=== PATIENT | female | born 1970 | race Two or more races ===

== ENCOUNTER 2023-05-05 13:20 | Inpatient (IN) | payer MEDICAID ==
[~2023-05-05] VITALS: Ht 167.6 cm; Wt 112.7 kg
[~2023-05-05 13:20] MED LIST: ATOR10TA52 PO; FURO1TAB31 PO; GABA-1250 PO; HYDR25TA87 PO; MET25T PO; NIFE1TAB31 PO
[2023-05-05 14:00] VITALS: PULSE 65; RESP 14; O2SAT 94
[2023-05-05 14:08] LABS: Basophils # (auto) 0.1 10 ^3/uL (0-0.2); Basophils % (auto) 1.1 % (0.0-2.0); Eosinophils # (auto) 0.2 10 ^3/uL (0-0.8); Eosinophils % (auto) 1.7 % (0.0-7.0); Hematocrit 32.5 % (36.0-46.0); Hemoglobin 10.6 g/dL (12.2-16.2); Lymphocytes # (auto) 1.8 10 ^3/uL (0.4-5.4); Lymphocytes % (auto) 13.5 % (10.0-50.0); Mean Corpuscular Hemoglobin 27.6 pg (28.0-32.0); Mean Corpuscular Hgb Conc. 32.7 g/dL (32.0-36.0); Mean Corpuscular Volume 84.5 fL (80.0-100.0); Monocytes # (auto) 0.7 10 ^3/uL (0-1.3); Monocytes % (auto) 5.6 % (0.0-12.0); Neutrophils # (auto) 10.4 10 ^3/uL (1.6-8.6); Neutrophils % (auto) 78.1 % (37.0-80.0); Red Blood Cells 3.84 10^6/uL (4.0-5.20); Red Cell Distribution Width 13.3 % (11.8-14.3); White Blood Cell 13.3 10^3/uL (4.4-10.8)
[2023-05-05 14:24] LABS: Alanine Aminotransferase 22 U/L (7-40); Albumin 3.8 g/dL (3.2-4.8); Alkaline Phosphatase 140 U/L (46-116); Anion Gap 10 (5-15); Aspartate Aminotransferase 14 U/L (13-40); BUN/Creatinine Ratio 13.3 (10.0-20.0); Blood Urea Nitrogen 73 mg/dL (9-23); Calcium 8.5 mg/dL (8.7-10.4); Carbon Dioxide 19 mmol/L (20-30); Chloride 105 mmol/L (98-107); Glucose 250 mg/dL (74-106); Magnesium 2.3 mg/dL (1.6-2.6); Sodium 134 mmol/L (136-145)
[2023-05-05 14:25] LABS: Bilirubin, Total 0.8 mg/dL (0.2-1.0); Total Protein 6.5 g/dL (5.7-8.2)
[2023-05-05 14:29] LABS: Potassium 6.1 mmol/L (3.5-5.1)
[2023-05-05] MEDS ORDERED: SODIUM ZIRCONIUM CYCL 10 GM PAK PO ONE ×2 (14:30→16:45)
[2023-05-05] MEDS ORDERED: InsuLIN REG 1unit/0.01ml Soln (100units/ml) IV ONE ×2 (14:30→16:45)
[2023-05-05] MEDS ORDERED: FUROSEMIDE 40 MG/4 ML VIAL IV ONE (14:30)
[2023-05-05] MEDS ORDERED: ALBUTEROL SULF 2.5 MG/0.5ML(0.5%) NEB SOLN NEB ONE ×2 (14:30→16:45)
[2023-05-05] MEDS ORDERED: SODIUM BICARBONATE 8.4% INJ 50ML SYRINGE IV ONE (14:30)
[2023-05-05] MEDS ORDERED: CALCIUM GLUC 1,000mg/50ml-NS 50 ML IV ONE (14:30)
[2023-05-05] MEDS ORDERED: DEXTROSE (50%) 50ML SYRG IV ONE ×2 (14:30→16:45)
[2023-05-05] MEDS ORDERED: SODIUM CHLORIDE 0.9% 1,000 ML IV ONE (14:30)
[2023-05-05 15:45] LABS: Urine Bacteria FEW /hpf (None Seen); Urine Blood Negative /uL (Negative); Urine Clarity Clear (Clear); Urine Protein, UAD 2+ (Negative); Urine Specific Gravity 1.009 (1.001-1.035); Urine Urobilinogen Normal (Negative); Urine WBC 2 /hpf (0 - 5); Urine pH 5.5 (5.0-8.0)
[2023-05-05 15:46] LABS: Urine Color STRAW (Yellow)
[2023-05-05] MEDS ORDERED: MORPHINE SULFATE INJ 2 MG/ml SYRG IV PRN ×2 (16:45)
[2023-05-05] MEDS ORDERED: SODIUM CHLORIDE 0.9% 1,000 ML IV SCH (16:45)
[2023-05-05] MEDS ORDERED: DEXTROSE (50%) 50ML SYRG IV PRN (16:45)
[2023-05-05] MEDS ORDERED: NITROGLYCERIN 0.4 MG SL TAB SL PRN (16:45)
[2023-05-05] MEDS: InsuLIN REG 1unit/0.01ml Soln (100units/ml) SC SCH ×2 (17:00→23:25)
[2023-05-05] MEDS: ACCU-CHEK COMFORT CURVE STRIP VI SCH ×2 (17:00→22:00)
[2023-05-05 19:44] VITALS: PULSE 85; RESP 18; O2SAT 97
[2023-05-06] MEDS ORDERED: hydrALAZINE HCL 20 MG/ML VL ONE (06:41)
[2023-05-06] MEDS: InsuLIN REG 1unit/0.01ml Soln (100units/ml) SC SCH ×3 (07:00→17:12)
[2023-05-06 11:20] LABS: Alanine Aminotransferase 19 U/L (7-40); Albumin 3.8 g/dL (3.2-4.8); Alkaline Phosphatase 114 U/L (46-116); Anion Gap 11 (5-15); Aspartate Aminotransferase < 8 U/L (13-40); Bilirubin, Total 0.6 mg/dL (0.2-1.0); Calcium 8.7 mg/dL (8.5-10.1); Carbon Dioxide 18 mmol/L (20-30); Chloride 106 mmol/L (98-107); Glucose 149 mg/dL (74-106); Potassium 5.3 mmol/L (3.5-5.1); Sodium 135 mmol/L (136-145); Total Protein 6.8 g/dL (5.7-8.2)
[2023-05-06] MEDS: ACCU-CHEK COMFORT CURVE STRIP VI SCH ×3 (11:30→22:00)
[2023-05-06 11:40] LABS: Blood Urea Nitrogen 51 mg/dL (9-23)
[2023-05-06 14:11] LABS: Basophils # (auto) 0.1 10 ^3/uL (0-0.2); Basophils % (auto) 0.4 % (0.0-2.0); Eosinophils # (auto) 0.2 10 ^3/uL (0-0.8); Eosinophils % (auto) 1.4 % (0.0-7.0); Hematocrit 29.3 % (36.0-46.0); Hemoglobin 9.4 g/dL (12.2-16.2); Lymphocytes # (auto) 1.5 10 ^3/uL (0.4-5.4); Mean Corpuscular Hemoglobin 27.6 pg (28.0-32.0); Mean Corpuscular Volume 86.3 fL (80.0-100.0); Monocytes # (auto) 1.1 10 ^3/uL (0-1.3); Monocytes % (auto) 8.5 % (0.0-12.0); Neutrophils # (auto) 9.7 10 ^3/uL (1.6-8.6); Neutrophils % (auto) 77.7 % (37.0-80.0); Nucleated Red Blood Cells % 0.1 %; Red Cell Distribution Width 13.2 % (11.8-14.3); White Blood Cell 12.4 10^3/uL (4.4-10.8)
[2023-05-06 14:37] VITALS: PULSE 75; RESP 18; O2SAT 96
[2023-05-06] MEDS: hydrALAZINE HCL 20 MG/ML VL IV PRN ×2 (15:23→21:03)
[2023-05-06] MEDS ORDERED: GABAPENTIN 300 MG CAP PO PRN (16:30)
[2023-05-06] MEDS ORDERED: MET25T PO (17:38)
[2023-05-06] MEDS ORDERED: SEMA2INJ3 SC (17:38)
[2023-05-06] MEDS ORDERED: GABA-1250 PO (17:38)
[2023-05-06] MEDS: SODIUM BICARBONATE 50ML VIAL 50 ML in SOD CHL 0.45% 1,000 ML IV SCH ×2 (17:58→23:00)
[2023-05-06 18:07] LABS: Magnesium 2.2 mg/dL (1.6-2.6)
[2023-05-06 18:08] LABS: Phosphorus 6.7 mg/dL (2.4-5.1)
[2023-05-06 18:13] VITALS: BP 142/64; RESP 22; TEMP 97.8; O2SAT 99
[2023-05-06 20:00] VITALS: BP 146/77; PULSE 100; PULSE 101; RESP 18; TEMP 98; O2SAT 95
[2023-05-06] MEDS: ATORVASTATIN 20 MG TAB PO SCH (21:08)
[2023-05-06] MEDS: HEPARIN SODIUM (PORCINE) 5000 UNITS/ML 1ML VIAL SC SCH (21:13)
[2023-05-06] MEDS: METOPROLOL TARTRATE 25 MG TAB PO SCH (21:30)
[2023-05-06 22:00] VITALS: BP 140/68; PULSE 102; RESP 20; TEMP 98.4; O2SAT 95
[2023-05-06] MEDS ORDERED: HEPARIN SODIUM (PORCINE) 5000 UNITS/ML 1ML VIAL SC SCH (22:00)
[2023-05-07] VITALS (15 sets, daily range): BP systolic 132–176; BP diastolic 61–92; PULSE 80–112; RESP 14–24; TEMP 97.3–98.3; O2SAT 90–100
[2023-05-07] MEDS: InsuLIN REG 1unit/0.01ml Soln (100units/ml) SC SCH ×5 (00:09→22:05)
[2023-05-07] MEDS: ACCU-CHEK COMFORT CURVE STRIP VI SCH ×4 (06:21→22:05)
[2023-05-07 06:27] LABS: Anion Gap 10 (5-15); Carbon Dioxide 19 mmol/L (20-30); Chloride 109 mmol/L (98-107); Sodium 138 mmol/L (136-145)
[2023-05-07 06:28] LABS: Calcium 8.9 mg/dL (8.5-10.1)
[2023-05-07 06:29] LABS: Basophils # (auto) 0 10 ^3/uL (0-0.2); Basophils % (auto) 0.2 % (0.0-2.0); Eosinophils # (auto) 0.2 10 ^3/uL (0-0.8); Eosinophils % (auto) 1.6 % (0.0-7.0); Hematocrit 28.5 % (36.0-46.0); Hemoglobin 9.3 g/dL (12.2-16.2); Lymphocytes # (auto) 1.3 10 ^3/uL (0.4-5.4); Lymphocytes % (auto) 12.2 % (10.0-50.0); Mean Corpuscular Hemoglobin 27.9 pg (28.0-32.0); Mean Corpuscular Hgb Conc. 32.7 g/dL (32.0-36.0); Mean Corpuscular Volume 85.2 fL (80.0-100.0); Monocytes # (auto) 0.9 10 ^3/uL (0-1.3); Monocytes % (auto) 8.3 % (0.0-12.0); Neutrophils # (auto) 8.5 10 ^3/uL (1.6-8.6); Neutrophils % (auto) 77.7 % (37.0-80.0); Red Blood Cells 3.35 10^6/uL (4.0-5.20); Red Cell Distribution Width 13.2 % (11.8-14.3)
[2023-05-07 06:33] LABS: BUN/Creatinine Ratio 13.2 (10.0-20.0); Glucose 119 mg/dL (74-106)
[2023-05-07 06:40] LABS: Blood Urea Nitrogen 61 mg/dL (9-23)
[2023-05-07] MEDS ORDERED: SODIUM CHL 0.9% 1000 ML BAG XX ONE ×2 (07:00→14:00)
[2023-05-07] MEDS: SODIUM BICARBONATE 50ML VIAL 50 ML in SOD CHL 0.45% 1,000 ML IV SCH ×3 (08:21→16:30)
[2023-05-07] MEDS ORDERED: DEXTROSE (50%) 50ML SYRG IV ONE (08:30)
[2023-05-07] MEDS ORDERED: SODIUM ZIRCONIUM CYCL 10 GM PAK PO ONE ×2 (08:30→12:00)
[2023-05-07] MEDS ORDERED: ALBUTEROL SULF 2.5 MG/0.5ML(0.5%) NEB SOLN NEB ONE (08:30)
[2023-05-07] MEDS ORDERED: InsuLIN REG 1unit/0.01ml Soln (100units/ml) IV ONE (08:30)
[2023-05-07] MEDS ORDERED: LIDOCAINE 2%HCL (LOCAL ANESTH.) INJ 20ML MDV ONE (09:27)
[2023-05-07] MEDS ORDERED: fentaNYL CITRATE 100 MCG/2 ML VL ONE (09:40)
[2023-05-07] MEDS ORDERED: MIDAZOLAM HCL 2MG/2ML 2ml VIAL (1mg/ml) ONE (09:40)
[2023-05-07] MEDS ORDERED: ceFAZolin 1GM/50ML 50 ML IV ONE (09:56)
[2023-05-07] MEDS: HEPARIN SODIUM (PORCINE) 5000 UNITS/ML 1ML VIAL SC SCH ×2 (10:00→21:21)
[2023-05-07] MEDS ORDERED: amLODIPine BESYLATE 5 MG TAB PO SCH (10:00)
[2023-05-07] MEDS ORDERED: NIFEdipine ER 30 MG TAB PO SCH (10:00)
[2023-05-07] MEDS ORDERED: HEPARIN SODIUM (PORCINE) 5000 UNITS/ML 1ML VIAL ONE (10:23)
[2023-05-07] MEDS: ONDANSETRON HCL 4 MG/2 ML VIAL IV PRN ×2 (12:02→19:54)
[2023-05-07] MEDS: METOPROLOL TARTRATE 25 MG TAB PO SCH ×2 (12:06→21:10)
[2023-05-07] MEDS: HYDROcodone-ACET 5/325MG TAB PO PRN ×2 (12:09→18:42)
[2023-05-07] MEDS: hydrALAZINE HCL 20 MG/ML VL IV PRN (19:57)
[2023-05-07] MEDS ORDERED: EPOETIN ALFA-EPBX 10,000 UNIT/1ML VIAL SC ONE ×2 (21:00)
[2023-05-07] MEDS: ATORVASTATIN 20 MG TAB PO SCH (21:11)
[2023-05-07] MEDS ORDERED: METOPROLOL TARTRATE 25 MG TAB PO SCH (22:00)
[2023-05-08] VITALS (10 sets, daily range): BP systolic 147–186; BP diastolic 62–93; PULSE 77–88; RESP 16–21; TEMP 97.4–98.2; O2SAT 92–97
[2023-05-08] MEDS: SODIUM BICARBONATE 50ML VIAL 50 ML in SOD CHL 0.45% 1,000 ML IV SCH ×2 (01:15→08:26)
[2023-05-08] MEDS: ACETAMINOPHEN 325 MG TAB PO PRN ×2 (02:56→20:49)
[2023-05-08] MEDS: ONDANSETRON HCL 4 MG/2 ML VIAL IV PRN ×2 (04:19→21:59)
[2023-05-08] MEDS: hydrALAZINE HCL 20 MG/ML VL IV PRN ×2 (05:06→21:59)
[2023-05-08] MEDS: ACCU-CHEK COMFORT CURVE STRIP VI SCH ×4 (05:46→21:49)
[2023-05-08] MEDS: InsuLIN REG 1unit/0.01ml Soln (100units/ml) SC SCH ×4 (07:00→21:52)
[2023-05-08] MEDS ORDERED: NIFEdipine ER 30 MG TAB PO SCH ×2 (10:00)
[2023-05-08] MEDS: METOPROLOL TARTRATE 25 MG TAB PO SCH ×2 (11:37→20:50)
[2023-05-08] MEDS: HEPARIN SODIUM (PORCINE) 5000 UNITS/ML 1ML VIAL SC SCH ×2 (11:38→21:01)
[2023-05-08] MEDS: ATORVASTATIN 20 MG TAB PO SCH (20:51)
[2023-05-09] VITALS (9 sets, daily range): BP systolic 158–180; BP diastolic 47–81; PULSE 78–97; RESP 14–16; TEMP 97.5–99.1; O2SAT 92–99
[2023-05-09] MEDS: SODIUM BICARBONATE 50ML VIAL 50 ML in SOD CHL 0.45% 1,000 ML IV SCH ×3 (03:23→21:00)
[2023-05-09 06:24] LABS: Anion Gap 7 (5-15); Carbon Dioxide 26 mmol/L (20-30); Chloride 99 mmol/L (98-107)
[2023-05-09 06:25] LABS: Calcium 9.2 mg/dL (8.7-10.4)
[2023-05-09 06:30] LABS: BUN/Creatinine Ratio 10.6 (10.0-20.0); Blood Urea Nitrogen 34 mg/dL (9-23); Glucose 120 mg/dL (74-106)
[2023-05-09 06:32] LABS: Sodium 132 mmol/L (136-145)
[2023-05-09] MEDS: ACCU-CHEK COMFORT CURVE STRIP VI SCH ×4 (06:37→22:36)
[2023-05-09] MEDS: InsuLIN REG 1unit/0.01ml Soln (100units/ml) SC SCH ×4 (06:37→22:38)
[2023-05-09 09:32] LABS: % Iron Saturation 25.6 % (15-50)
[2023-05-09] MEDS: METOPROLOL TARTRATE 25 MG TAB PO SCH ×2 (09:49→22:40)
[2023-05-09] MEDS: HEPARIN SODIUM (PORCINE) 5000 UNITS/ML 1ML VIAL SC SCH ×2 (09:52→22:50)
[2023-05-09] MEDS: hydrALAZINE HCL 25 MG TAB PO SCH ×2 (15:39→22:41)
[2023-05-09] MEDS: B-COMPLEX W/ C & FOLIC ACID(NEPHROVITE TAB) PO SCH (15:39)
[2023-05-09] MEDS: ATORVASTATIN 20 MG TAB PO SCH (22:39)
[2023-05-09] MEDS: DOCUSATE SOD 100 MG CAP PO SCH (22:39)
[2023-05-10] VITALS (8 sets, daily range): BP systolic 149–175; BP diastolic 72–77; PULSE 74–89; RESP 15–23; TEMP 97.8–98.9; O2SAT 91–98
[2023-05-10] MEDS: hydrALAZINE HCL 25 MG TAB PO SCH ×3 (06:00→22:49)
[2023-05-10] MEDS: ACCU-CHEK COMFORT CURVE STRIP VI SCH ×4 (06:12→22:56)
[2023-05-10] MEDS: InsuLIN REG 1unit/0.01ml Soln (100units/ml) SC SCH ×4 (06:12→22:56)
[2023-05-10] MEDS: SODIUM BICARBONATE 50ML VIAL 50 ML in SOD CHL 0.45% 1,000 ML IV SCH ×3 (06:13→23:16)
[2023-05-10] MEDS: ACETAMINOPHEN 325 MG TAB PO PRN ×2 (06:36→18:37)
[2023-05-10] MEDS ORDERED: SODIUM CHL 0.9% 1000 ML BAG XX ONE (07:00)
[2023-05-10] MEDS ORDERED: HEPARIN SODIUM (PORCINE) 5000 UNITS/ML 1ML VIAL ONE (11:18)
[2023-05-10] MEDS: B-COMPLEX W/ C & FOLIC ACID(NEPHROVITE TAB) PO SCH (11:20)
[2023-05-10] MEDS: METOPROLOL TARTRATE 25 MG TAB PO SCH ×2 (11:21→22:49)
[2023-05-10] MEDS: DOCUSATE SOD 100 MG CAP PO SCH ×2 (11:21→22:49)
[2023-05-10] MEDS ORDERED: GABA-1250 PO (11:26)
[2023-05-10] MEDS ORDERED: HYDR-5052 PO (11:26)
[2023-05-10] MEDS ORDERED: MET50T PO (11:26)
[2023-05-10] MEDS: HEPARIN SODIUM (PORCINE) 5000 UNITS/ML 1ML VIAL SC SCH ×2 (11:30→22:55)
[2023-05-10] MEDS ORDERED: EPOETIN ALFA-EPBX 10,000 UNIT/1ML VIAL SC ONE (21:00)
[2023-05-10] MEDS: ATORVASTATIN 20 MG TAB PO SCH (22:49)
[2023-05-11] VITALS (7 sets, daily range): BP systolic 121–168; BP diastolic 65–75; PULSE 71–79; RESP 17–21; TEMP 36.7; O2SAT 93–98
[2023-05-11] MEDS: ACCU-CHEK COMFORT CURVE STRIP VI SCH ×3 (06:37→17:00)
[2023-05-11] MEDS: InsuLIN REG 1unit/0.01ml Soln (100units/ml) SC SCH ×3 (06:37→17:00)
[2023-05-11] MEDS: hydrALAZINE HCL 25 MG TAB PO SCH ×2 (06:37→15:19)
[2023-05-11] MEDS: SODIUM BICARBONATE 50ML VIAL 50 ML in SOD CHL 0.45% 1,000 ML IV SCH ×2 (08:00→16:45)
[2023-05-11] MEDS: DOCUSATE SOD 100 MG CAP PO SCH (10:45)
[2023-05-11] MEDS: B-COMPLEX W/ C & FOLIC ACID(NEPHROVITE TAB) PO SCH (10:45)
[2023-05-11] MEDS: METOPROLOL TARTRATE 25 MG TAB PO SCH (10:49)
[2023-05-11] MEDS: HEPARIN SODIUM (PORCINE) 5000 UNITS/ML 1ML VIAL SC SCH (10:54)
[2023-05-11 10:59] LABS: Chloride 100 mmol/L (98-107); Sodium 131 mmol/L (136-145)
[2023-05-11 11:00] LABS: Anion Gap 4 (5-15); Calcium 8.5 mg/dL (8.7-10.4); Carbon Dioxide 27 mmol/L (20-30)
[2023-05-11 11:05] LABS: BUN/Creatinine Ratio 8.1 (10.0-20.0); Blood Urea Nitrogen 25 mg/dL (9-23); Glucose 231 mg/dL (74-106)
== END 2023-05-11 19:57 | disposition home or self-care (01) | DRG 469 ==
LOC: ER 13:20 → EDUNIT# 13:20 → EDBD 13:20 → TELE 16:34 → TELE-WESTW 05-06 17:05
PROVIDERS: ADMIT Nurse Practitioner; ATTEND Nurse Practitioner
PROC: 5A1D70Z Performance of Urinary Filtration, Intermittent, Less than 6 Hours Per Day (ICD-10-PCS; principal; 2023-05-07)
PROC: 0JH63XZ Insertion of Tunneled Vascular Access Device into Chest Subcutaneous Tissue and Fascia, Percutaneous Approach (ICD-10-PCS; 2023-05-07)
PROC: 02H633Z Insertion of Infusion Device into Right Atrium, Percutaneous Approach (ICD-10-PCS; 2023-05-07)
PROC: B548ZZA Ultrasonography of Superior Vena Cava, Guidance (ICD-10-PCS; 2023-05-07)
PROC: B5191ZA Fluoroscopy of Inferior Vena Cava using Low Osmolar Contrast, Guidance (ICD-10-PCS; 2023-05-07)
PROC: 5A1D70Z Performance of Urinary Filtration, Intermittent, Less than 6 Hours Per Day (ICD-10-PCS; 2023-05-10)
DX: N17.9 Acute kidney failure, unspecified (principal); E87.20 Acidosis, unspecified; I12.0 Hypertensive chronic kidney disease with stage 5 chronic kidney disease or end stage renal disease; D63.1 Anemia in chronic kidney disease; E11.319 Type 2 diabetes mellitus with unspecified diabetic retinopathy without macular edema; N18.5 Chronic kidney disease, stage 5; E11.22 Type 2 diabetes mellitus with diabetic chronic kidney disease; E87.5 Hyperkalemia; E66.01 Morbid (severe) obesity due to excess calories; F41.9 Anxiety disorder, unspecified; E11.65 Type 2 diabetes mellitus with hyperglycemia; E11.51 Type 2 diabetes mellitus with diabetic peripheral angiopathy without gangrene; E78.5 Hyperlipidemia, unspecified; I95.1 Orthostatic hypotension; Z99.2 Dependence on renal dialysis; Z80.0 Family history of malignant neoplasm of digestive organs; Z82.49 Family history of ischemic heart disease and other diseases of the circulatory system; Z91.041 Radiographic dye allergy status; Z68.41 Body mass index [BMI] 40.0-44.9, adult
CPT/HCPCS: 36415; 36558; 71045; 76775; 76937; 77001; 80048; 80053; 81001; 82306; 82962; 83540; 83550; 83605; 83735; 83880; 83970; 84100; 84132; 84484; 85018; 85025; 85379; 87340; 90935; 93005; 94640; 99152; C1894; G0378; J0690; J1642; J1815; J2250; J2405

== ENCOUNTER 2023-06-09 15:08 | Inpatient (IN) | payer MEDICAID ==
[~2023-06-09] VITALS: Ht 160 cm; Wt 104.0 kg
[~2023-06-09 15:08] MED LIST changes: -FURO1TAB31 PO; +HYDR-5052 PO; -HYDR25TA87 PO; -MET25T PO; +MET50T PO; -NIFE1TAB31 PO
[2023-06-09 16:39] LABS: Basophils # (auto) 0.1 10 ^3/uL (0-0.2); Basophils % (auto) 0.5 % (0.0-2.0); Eosinophils # (auto) 0.3 10 ^3/uL (0-0.8); Eosinophils % (auto) 1.9 % (0.0-7.0); Hematocrit 32.7 % (36.0-46.0); Hemoglobin 10.6 g/dL (12.2-16.2); Lymphocytes # (auto) 1.6 10 ^3/uL (0.4-5.4); Lymphocytes % (auto) 11.3 % (10.0-50.0); Mean Corpuscular Hemoglobin 27.4 pg (28.0-32.0); Mean Corpuscular Hgb Conc. 32.5 g/dL (32.0-36.0); Mean Corpuscular Volume 84.4 fL (80.0-100.0); Monocytes # (auto) 0.6 10 ^3/uL (0-1.3); Monocytes % (auto) 4.6 % (0.0-12.0); Neutrophils # (auto) 11.3 10 ^3/uL (1.6-8.6); Neutrophils % (auto) 81.7 % (37.0-80.0); Red Blood Cells 3.88 10^6/uL (4.0-5.20); Red Cell Distribution Width 13.8 % (11.8-14.3); White Blood Cell 13.8 10^3/uL (4.4-10.8)
[2023-06-09 16:50] LABS: INR 0.93 (0.9-1.15); Prothrombin Time 9.8 sec (9.3-11.8)
[2023-06-09 16:54] LABS: Alanine Aminotransferase 20 U/L (7-40); Alkaline Phosphatase 147 U/L (46-116); Aspartate Aminotransferase 12 U/L (13-40); Calcium 8.8 mg/dL (8.5-10.1); Carbon Dioxide 18 mmol/L (20-30); Chloride 108 mmol/L (98-107)
[2023-06-09 16:55] LABS: Albumin 3.9 g/dL (3.2-4.8); Anion Gap 9 (5-15); Bilirubin, Total 0.7 mg/dL (0.2-1.0); Blood Urea Nitrogen 44 mg/dL (9-23); Glucose 355 mg/dL (74-106); Potassium 4.6 mmol/L (3.5-5.1); Sodium 135 mmol/L (136-145)
[2023-06-09] MEDS ORDERED: MORPHINE SULFATE INJ 2 MG/ml SYRG IV PRN (20:15)
[2023-06-09] MEDS ORDERED: DOCUSATE SOD 100 MG CAP PO PRN (20:15)
[2023-06-09] MEDS ORDERED: ONDANSETRON HCL 4 MG/2 ML VIAL IV PRN (20:15)
[2023-06-09] MEDS ORDERED: DEXTROSE (50%) 50ML SYRG IV PRN (20:15)
[2023-06-09] MEDS ORDERED: ACETAMINOPHEN 325 MG TAB PO PRN (20:15)
[2023-06-09] MEDS ORDERED: NITROGLYCERIN 0.4 MG SL TAB SL PRN (20:15)
[2023-06-09] MEDS ORDERED: ALPRAZolam 0.5 MG TAB PO PRN (20:15)
[2023-06-09 22:30] VITALS: PULSE 89; RESP 18; O2SAT 95
[2023-06-10] VITALS (11 sets, daily range): BP systolic 126–183; BP diastolic 68–102; PULSE 65–80; RESP 12–18; TEMP 97.3–98.2; O2SAT 96–100
[2023-06-10] MEDS: HYDROcodone-ACET 5/325MG TAB PO PRN ×2 (00:56→09:36)
[2023-06-10] MEDS: ATORVASTATIN 20 MG TAB PO SCH ×2 (00:57→21:59)
[2023-06-10] MEDS: hydrALAZINE HCL 25 MG TAB PO SCH ×5 (00:57→21:59)
[2023-06-10] MEDS: METOPROLOL TARTRATE 50 MG TAB PO SCH ×3 (00:58→21:59)
[2023-06-10] MEDS: ACCU-CHEK COMFORT CURVE STRIP VI SCH ×5 (01:07→23:04)
[2023-06-10] MEDS: InsuLIN REG 1unit/0.01ml Soln (100units/ml) SC SCH ×5 (01:08→23:05)
[2023-06-10 05:51] LABS: Basophils # (auto) 0 10 ^3/uL (0-0.2); Basophils % (auto) 0.2 % (0.0-2.0); Eosinophils # (auto) 0.5 10 ^3/uL (0-0.8); Eosinophils % (auto) 3.5 % (0.0-7.0); Hematocrit 34.4 % (36.0-46.0); Hemoglobin 10.8 g/dL (12.2-16.2); Lymphocytes # (auto) 3.3 10 ^3/uL (0.4-5.4); Lymphocytes % (auto) 22.6 % (10.0-50.0); Mean Corpuscular Hemoglobin 26.9 pg (28.0-32.0); Mean Corpuscular Hgb Conc. 31.4 g/dL (32.0-36.0); Mean Corpuscular Volume 85.7 fL (80.0-100.0); Monocytes # (auto) 1.1 10 ^3/uL (0-1.3); Monocytes % (auto) 7.6 % (0.0-12.0); Neutrophils # (auto) 9.5 10 ^3/uL (1.6-8.6); Neutrophils % (auto) 66.1 % (37.0-80.0); Red Blood Cells 4.02 10^6/uL (4.0-5.20); Red Cell Distribution Width 13.9 % (11.8-14.3); White Blood Cell 14.4 10^3/uL (4.4-10.8)
[2023-06-10 06:07] LABS: Alanine Aminotransferase 20 U/L (7-40); Albumin 4.2 g/dL (3.2-4.8); Alkaline Phosphatase 143 U/L (46-116); Anion Gap 10 (5-15); Aspartate Aminotransferase 12 U/L (13-40); BUN/Creatinine Ratio 11.6 (10.0-20.0); Blood Urea Nitrogen 42 mg/dL (9-23); Carbon Dioxide 16 mmol/L (20-30); Chloride 110 mmol/L (98-107); Glucose 170 mg/dL (74-106); Potassium 4.5 mmol/L (3.5-5.1); Sodium 136 mmol/L (136-145); Total Protein 7.6 g/dL (5.7-8.2)
[2023-06-10] MEDS: PANTOPRAZOLE 40 MG TAB PO SCH (09:26)
[2023-06-10] MEDS: GABAPENTIN 300 MG CAP PO SCH (09:26)
[2023-06-10] MEDS ORDERED: LIDOCAINE 2%HCL (LOCAL ANESTH.) INJ 20ML MDV ONE (12:50)
[2023-06-10] MEDS ORDERED: MIDAZOLAM HCL 2MG/2ML 2ml VIAL (1mg/ml) ONE (13:01)
[2023-06-10] MEDS ORDERED: fentaNYL CITRATE 100 MCG/2 ML VL ONE (13:01)
[2023-06-10] MEDS ORDERED: ceFAZolin 1GM/50ML 50 ML IV ONE (13:17)
[2023-06-10] MEDS ORDERED: HEPARIN SODIUM (PORCINE) 5000 UNITS/ML 1ML VIAL ONE (13:29)
[2023-06-10] MEDS ORDERED: hydrALAZINE HCL 20 MG/ML VL IV PRN (16:00)
[2023-06-10] MEDS: VANCOMYCIN 750mg/250ml 250 ML IV SCH ×2 (17:48→20:43)
[2023-06-11 05:00] VITALS: BP 112/87; PULSE 72; RESP 18; TEMP 97.8; O2SAT 99
[2023-06-11] MEDS: hydrALAZINE HCL 25 MG TAB PO SCH ×2 (05:39→14:00)
[2023-06-11] MEDS: ACCU-CHEK COMFORT CURVE STRIP VI SCH ×3 (05:40→17:00)
[2023-06-11] MEDS: InsuLIN REG 1unit/0.01ml Soln (100units/ml) SC SCH ×3 (05:43→17:00)
[2023-06-11] MEDS ORDERED: SODIUM CHL 0.9% 1000 ML BAG XX ONE (07:00)
[2023-06-11 07:28] LABS: Basophils # (auto) 0 10 ^3/uL (0-0.2); Basophils % (auto) 0.3 % (0.0-2.0); Eosinophils # (auto) 0.5 10 ^3/uL (0-0.8); Eosinophils % (auto) 4.2 % (0.0-7.0); Hematocrit 34.4 % (36.0-46.0); Hemoglobin 10.4 g/dL (12.2-16.2); Lymphocytes # (auto) 2.1 10 ^3/uL (0.4-5.4); Lymphocytes % (auto) 19.4 % (10.0-50.0); Mean Corpuscular Hemoglobin 27.3 pg (28.0-32.0); Mean Corpuscular Hgb Conc. 30.1 g/dL (32.0-36.0); Mean Corpuscular Volume 90.7 fL (80.0-100.0); Monocytes # (auto) 0.9 10 ^3/uL (0-1.3); Monocytes % (auto) 8.1 % (0.0-12.0); Neutrophils # (auto) 7.4 10 ^3/uL (1.6-8.6); Red Blood Cells 3.79 10^6/uL (4.0-5.20); Red Cell Distribution Width 14.1 % (11.8-14.3); White Blood Cell 10.8 10^3/uL (4.4-10.8)
[2023-06-11 08:00] VITALS: BP_SYST 128; BP_SYST 139; BP_DIAS 72; BP_DIAS 77; PULSE 76; PULSE 77; RESP 18; TEMP 97.7; TEMP 98; O2SAT 100; O2SAT 97
[2023-06-11] MEDS: PANTOPRAZOLE 40 MG TAB PO SCH (09:23)
[2023-06-11] MEDS: GABAPENTIN 300 MG CAP PO SCH (09:23)
[2023-06-11 09:33] LABS: Platelet Estimate Adequate
[2023-06-11] MEDS: METOPROLOL TARTRATE 50 MG TAB PO SCH (10:00)
[2023-06-11 10:51] LABS: Alanine Aminotransferase 18 U/L (7-40); Albumin 3.6 g/dL (3.2-4.8); Alkaline Phosphatase 121 U/L (46-116); Anion Gap 10 (5-15); Aspartate Aminotransferase 12 U/L (13-40); BUN/Creatinine Ratio 13.3 (10.0-20.0); Bilirubin, Total 0.6 mg/dL (0.2-1.0); Calcium 8.5 mg/dL (8.5-10.1); Carbon Dioxide 16 mmol/L (20-30); Chloride 106 mmol/L (98-107); Glucose 306 mg/dL (74-106); Sodium 132 mmol/L (136-145); Total Protein 6.7 g/dL (5.7-8.2)
[2023-06-11 10:52] LABS: Blood Urea Nitrogen 52 mg/dL (9-23)
[2023-06-11 12:00] VITALS: BP 155/73; PULSE 75; RESP 16; TEMP 98.4; O2SAT 99
[2023-06-11 15:20] VITALS: BP 134/72; PULSE 76; TEMP 36.9
[2023-06-11 16:00] VITALS: BP 118/66; PULSE 84; RESP 18; TEMP 98; O2SAT 100
[2023-06-11] MEDS ORDERED: EPOETIN ALFA-EPBX 10,000 UNIT/1ML VIAL SC ONE (21:00)
== END 2023-06-11 17:00 | disposition home or self-care (01) | DRG 167 ==
LOC: ER 15:08 → TELE 20:12 → TELE-EAST 06-10 09:13
PROVIDERS: ADMIT Nurse Practitioner; ATTEND Nurse Practitioner
PROC: 0JPT3XZ Removal of Tunneled Vascular Access Device from Trunk Subcutaneous Tissue and Fascia, Percutaneous Approach (ICD-10-PCS; principal; 2023-06-10)
PROC: 02PY03Z Removal of Infusion Device from Great Vessel, Open Approach (ICD-10-PCS; 2023-06-10)
PROC: 0JH63XZ Insertion of Tunneled Vascular Access Device into Chest Subcutaneous Tissue and Fascia, Percutaneous Approach (ICD-10-PCS; 2023-06-10)
PROC: 02HV33Z Insertion of Infusion Device into Superior Vena Cava, Percutaneous Approach (ICD-10-PCS; 2023-06-10)
PROC: B5181ZA Fluoroscopy of Superior Vena Cava using Low Osmolar Contrast, Guidance (ICD-10-PCS; 2023-06-10)
DX: T82.41XA Breakdown (mechanical) of vascular dialysis catheter, initial encounter (principal); I12.0 Hypertensive chronic kidney disease with stage 5 chronic kidney disease or end stage renal disease; N18.6 End stage renal disease; D63.1 Anemia in chronic kidney disease; E87.1 Hypo-osmolality and hyponatremia; E11.22 Type 2 diabetes mellitus with diabetic chronic kidney disease; E66.01 Morbid (severe) obesity due to excess calories; E78.5 Hyperlipidemia, unspecified; F41.9 Anxiety disorder, unspecified; E11.65 Type 2 diabetes mellitus with hyperglycemia; Y71.2 Prosthetic and other implants, materials and accessory cardiovascular devices associated with adverse incidents; Z99.2 Dependence on renal dialysis; Z91.041 Radiographic dye allergy status; Z82.49 Family history of ischemic heart disease and other diseases of the circulatory system; Z80.8 Family history of malignant neoplasm of other organs or systems; Y92.89 Other specified places as the place of occurrence of the external cause; Z68.41 Body mass index [BMI] 40.0-44.9, adult
CPT/HCPCS: 36415; 36558; 76000; 76942; 77001; 80053; 82962; 85025; 85610; 85730; 87040; 87081; 90935; 99152; G0378; J0690; J1642; J1815; J2250; J2405

== ENCOUNTER 2024-10-20 12:32 | Emergency (ER) | payer MEDICAID ==
[~2024-10-20] VITALS: Ht 160 cm; Wt 94.0 kg
--- NOTE | 2024-10-20 13:26 | ED.PDOC ---
History of Present Illness HPI Comments 54Y F with PMHx DM, ESRD on HD, HTN, and HLD presents to ED for chief complaint left eye vision changes x2days. Pt states she sees red when turning her left eye to the right side and "feels blood in the back". Pt received new glasses from [facility]ener on Wednesday and was advised to see seismograph computer. Pt was referred to ED by IE once symptoms began. No other symptoms reported. She denies such things as floaters, flashing lights or pain with eye movement. She states she sees what appeared to be droplets of blood individual field. Chief Complaint: Eye Problem Time Seen by MD: 13:12 Primary Care Provider: UNKNOWN Reviewed Notes: Nurses Notes, Medications, Allergies Allergies: Coded Allergies: Nifedipine (Verified Allergy, Unknown, 06/09/23) Uncoded Allergies: CONTRAST (Allergy, Unknown, 04/30/23) Home Meds Active Scripts Metoprolol Tartrate (LOPRESSOR TABLET) 50 Mg Tb, 1 TAB PO BID for 30 Days, #60 TAB 5 Refills Prov:MICHELE FERNNADEZ NP 05/10/23 Hydralazine HCl (Hydralazine Hydrochloride) 50 Mg Tab, 100 MG PO TID for 30 Days, #180 TAB Prov:MICHELE FERNANDEZ NP 05/10/23 Gabapentin (Gabapentin) 300 Mg Cap, 300 MG PO DAILY PRN for 30 Days, #30 CAP Prov:SUZANNEJUANMICHELE M HEEL SPRAYER 05/10/23 Reported Medications Atorvastatin Calcium (ATORVASTATIN CALCIUM) 10 Mg Tab, 1 TAB PO DAILY 04/30/23 Information Source: Patient Mode of Arrival: Ambulatory Severity: Mild Timing: Days Duration: Since onset Prehospital treatment: None Past Medical History PAST MEDICAL HISTORY: Anxiety, DM, ESRD, High Lipids, HTN Surgical History: Denies all surgeries CODING AUDITOR History: Denies all CODING AUDITOR Hx Family History Family History: Unknown Social History Smoker: Non-Smoker Alcohol: Denies ETOH Use Drugs: Denies Drug Use Lives In: Home Constitutional: denies: chills, diaphoresis, fatigue, fever, malaise, sweats, weakness, others EENTM: reports: blurred vision; denies: double vision, ear bleeding, ear discharge, ear drainage, ear pain, ear ringing, eye pain, eye redness, hearing loss, mouth pain, mouth swelling, nasal discharge, nose bleeding, nose congestion, nose pain, photophobia, tearing, throat pain, throat swelling, voice changes, others Respiratory: denies: cough, hemoptysis, orthopnea, SOB at rest, shortness of breath, SOB with excertion, stridor, wheezing, others Cardiovascular: denies: chest pain, dizzy spells, diaphoresis, Dyspnea on exertion, edema, irregular heart beat, left arm pain, lightheadedness, palpitations, PND, syncope, others Gastrointestinal: denies: abdomen distended, abdominal pain, blood streaked bowels, constipated, diarrhea, dysphagia, difficulty swallowing, hematemesis, melena, nausea, poor appetite, poor fluid intake, rectal bleeding, rectal pain, vomiting, others Genitourinary: denies: abnormal vagina bleeding, burning, dyspareunia, dysuria, flank pain, frequency, hematuria, incontinence, pain, , vagina discharge, urgency, others Neurological: denies: dizziness, fainting, headache, left sided numbness, left sided weakness, numbness, paresthesia, pre-existing deficit, right sided numbness, right sided weakness, seizure, speech problems, tingling, tremors, weakness, others Musculoskeletal: denies: back pain, gout, joint pain, joint swelling, muscle pain, muscle stiffness, neck pain, others Integumetry: denies: bruises, change in color, change in hair/nails, dryness, laceration, lesions, lumps, rash, wounds, others Allergic/Immunocompromised: denies: Difficulty Healing, Frequent Infections, Hives, Itching, others Hematologic/Lymphatic: denies: anemia, blood clots, easy bleeding, easy bruising, swollen glands, others Endocrine: denies: excessive hunger, excessive sweating, excessive thirst, excessive urination, flushing, intolerance to cold, intolerance to heat, unexplained weight gain, unexplained weight loss, others Psychiatric: denies: anxiety, bipolar disorder, depression, hopeless, panic disorder, schizophrenia, sleepless, suicidal, others All Other Systems: Reviewed and Negative Physical Exam General Appearance: No Apparent Distress HEENT: Cornea (L), Cornea (R), Eye Lid (L), Eye Lid (R), Pharynx Normal, Other (Blood and vitreous OS, visual nicolas intact to confrontation. Patient was able to count digits without difficulty at 6 in, 12 in an 18 in.) Neck: Full Range of Motion, Non-Tender, Normal, Normal Inspection Respiratory: Chest Non-Tender, Lungs Clear, No Accessory Muscle Use, No Respiratory Distress, Normal Breath Sounds Cardiovascular: No Edema, No Murmur, No Gallop, Normal Peripheral Pulses, Regular Rate/Rhythm Breast Exam: Deferred Gastrointestinal: No Organomegaly, Non Tender, Normal Bowel Sounds, Soft Genitalia: Deferred Pelvic: Deferred Rectal: Deferred Extremities: Normal capillary refill, Normal inspection, Normal range of motion, Non-tender Musculoskeletal : Apperance: Normal Neurologic: Alert, typewriters functional tester II-XII nml as Tested, No Motor Deficits, Normal Affect, Normal Mood, No Sensory Deficits Cerebellar Function: NOT DONE Reflexes: NOT DONE Skin: Dry, Normal Color, Warm Lymphatic: NOT DONE Was a procedure done? Was a procedure done?: No Differential Dx Considerations may include: diabetic retinopathy X-Ray, Labs, Meds, VS Vital Signs Date Time Temp Pulse Resp B/P (MAP) Pulse Ox O2 Delivery O2 Flow Rate FiO2 10/20/24 13:26 Room Air* 0 21 10/20/24 12:58 98.2 88 20 169/83 (111) 97 98.2 X-Ray, Labs, Meds, VS Comment This 54-year-old male presents secondary to altered vision in her left eye. She states she sees droplets of blood in her visual nicolas. When I looked at the eye through direct ophthalmoscopy, so it appears to be blood in the vitreous. However, without appropriate lenses, dilatation it is difficult to get a good view of the retina in vitreous. However, can see she was no floaters or flashing lights, doubt she has a retinal detachment. The concern is vitreous hemorrhage as she was seeing droplets of blood or no visual field. Reached out to her seismograph computer he was suggested the patient to follow up today at their clinic. The phone number is [phone]. [facility] Address: [address], [place] [address] .. She was asked to come immediately from our facility to the clinic for Time of 1ST Reevaluation: 13:42 Reevaluation 1ST: Unchanged Time of 2ND Reevaluation: 14:14 Reevaluation 3RD: Unchanged Patient Education/Counseling: Diagnosis, Treatment Family Education/Counseling: No Family Present Departure 1 Departure Time of Disposition: 14:14 Impression: Primary Impression: Vitreous hemorrhage Additional Impression: Alteration in vision Disposition: 01 HOME / SELF CARE / HOMELESS Condition: Good Discharged With: Self Critical Care Note Critical Care Time?: No Stability Stability form required: No Heart Score Heart Score: Heart Score Response (Comments) Value History N/A 0 EKG N/A 0 Age N/A 0 Risk Factors N/A 0 Troponin N/A 0 Total 0 I personally scribed for MARKIE VALDEZ MD ([email or web address]) on 10/20/24 at 13:26. Electronically submitted by Leann Meade ([email or web address]). MARKIE VALDEZ MD Oct 20, 2024 13:26
[2024-10-20 14:35] VITALS: BP 152/75; PULSE 83; RESP 16; TEMP 98.5; O2SAT 95
== END 2024-10-20 14:37 | disposition home or self-care (01) ==
LOC: ER 12:32
DX: H43.12 Vitreous hemorrhage, left eye (principal); I12.0 Hypertensive chronic kidney disease with stage 5 chronic kidney disease or end stage renal disease; E11.22 Type 2 diabetes mellitus with diabetic chronic kidney disease; N18.6 End stage renal disease; E78.5 Hyperlipidemia, unspecified; Z79.899 Other long term (current) drug therapy; Z99.2 Dependence on renal dialysis; Z88.8 Allergy status to other drugs, medicaments and biological substances